=== PATIENT | female | born 1975 | race Caucasian/White ===

== ENCOUNTER 2018-06-21 20:26 | Emergency (ER) | payer MEDICAID ==
[~2018-06-21] VITALS: Ht 144.8 cm; Wt 68.0 kg
[2018-06-22 03:22] LABS: CLARITY URINE CLEAR (CLEAR); COLOR URINE YELLOW (YELLOW); KETONES URINE NEGATIVE (NEGATIVE); LEUKOCYTE ESTERASE URINE NEGATIVE (NEGATIVE); NITRITE URINE NEGATIVE (NEGATIVE); OCCULT BLOOD URINE 1+ (NEGATIVE); PH URINE 5.5 (4.5-8.0); PROTEIN URINE NEGATIVE (NEGATIVE); SPECIFIC GRAVITY URINE 1.016 (1.005-1.030); UROBILINOGEN URINE 0.2 E.U./dL (0.2-1.0)
[2018-06-22 03:47] VITALS: BP 140/73
[2018-06-22] MEDS ORDERED: ONDANSETRON HCL 4MG/2ML INJ IV STA (03:49)
[2018-06-22] MEDS ORDERED: SODIUM CHLORIDE 0.9% 1,000 ML IV ONE (03:49)
[2018-06-22 04:45] LABS: BASOPHILS % 0.6 % (0.0-2.0); EOSINOPHILS % 1.3 % (0.0-5.0); HEMATOCRIT. 35.4 % (36.0-48.0); HEMOGLOBIN. 11.7 g/dL (12.0-16.0); LYMPHOCYTES % 42.4 % (20.0-50.0); MEAN CORPUSCULAR HEMOGLOBIN 24.7 pg (28.0-32.0); MEAN CORPUSCULAR VOLUME 74.5 fL (81.0-99.0); MEAN PLATELET VOLUME 9.9 fl (7.4-10.4); MONOCYTES % 8.7 % (2.0-8.0); PLATELET 227 x1000/uL (130-400); RED BLOOD CELL COUNT 4.75 mill/uL (4.2-5.4)
[2018-06-22 04:51] LABS: CHLORIDE 107 mEq/L (98-107)
[2018-06-22 05:15] LABS: INR 1.1; PROTHROMBIN TIME 10.6 sec (9.1-11.1)
[2018-06-22] MEDS ORDERED: FAMOTIDINE 20MG/2ML VIAL IV ONE (05:30)
== END 2018-06-22 06:06 | disposition home or self-care (01) ==
LOC: ER 20:26
DX: R10.13 Epigastric pain (principal)
CPT/HCPCS: 36415; 80053; 81003; 81025; 83690; 85025; 85610; 96374; 99283; J2405; J7030; Z7610